=== PATIENT | female | born 1935 | race Caucasian/White ===

== ENCOUNTER 2019-12-02 12:49 | Outpatient (RCR) | payer MEDICARE, OTHER | END 2020-01-16 | disposition home or self-care (01) | PROVIDERS: ATTEND Orthopaedic Surgery | DX: M70.62 Trochanteric bursitis, left hip (principal); M70.61 Trochanteric bursitis, right hip ==

== ENCOUNTER 2020-08-06 12:52 | Emergency (ER) | payer MEDICARE, OTHER ==
[~2020-08-06] VITALS: Ht 165 cm; Wt 73.0 kg
--- NOTE | 2020-08-06 14:02 | NUR ---
RESTING IN BED. DOES NOT WANT ANYTHING FOR PAIN AT THIS MOMENT. PT HAS BEEN TALKING TO FAMILY/FRIENDS WITH HER CELL PHONE.
--- NOTE | 2020-08-06 14:23 | Diagnostic Imaging Report ---
INDICATION: Fall. FINDINGS: There is a mildly comminuted subcapital fracture of the right femur. There is no other fracture or dislocation. The pelvis is intact. The left hip is intact. IMPRESSION: Mildly comminuted subcapital fracture of the right femur. Dictated by: Dictated on workstation # [id number]
--- NOTE | 2020-08-06 14:24 | Diagnostic Imaging Report ---
INDICATION: Fall. FINDINGS: Heart size normal. Lungs are clear. No pleural effusion or pneumothorax. Mediastinum is unremarkable. IMPRESSION: No acute cardiopulmonary abnormality. Dictated by: Dictated on workstation # [id number]
--- NOTE | 2020-08-06 14:29 | ED Lower Extremity ---
General Chief Complaint: Trauma-Non Activation Stated Complaint: FALL Nursing Triage Note: ARRIVED VIA EMS WITH COMPLAINTS OF RIGHT HIP PAIN AFTER FALL. STATES SHE WAS ON A SLOPE WHEN SHE TRIPPED. DENIES DIZZINESS PRIOR TO FALL. Nursing Sepsis Screen: No Definite Risk History of Present Illness Date Seen by Provider: Aug 06, 2020 Time Seen by Provider: 14:27 Initial Comments This 84-year-old female who presents to the ER via [facility] for complaints of right hip pain. Sates she was walking into the back door of the [employer] when she slid and fell on the concrete, landing on her right hip. The pain is sharp, localized to the right hip, and rates 6 out of 10 at this time. Denies any numbness, tingling, or loss of sensation distal to the injury. Denies any head or neck trauma, or loss of consciousness. Allergies and Home Medications Allergies Coded Allergies: Penicillins (Verified Allergy, Severe, HIVES, 08/06/20) Sulfa (Sulfonamide Antibiotics) (Verified Allergy, Severe, HIVES, 08/06/20) iodine (Verified Allergy, Severe, HIVES, ITCHING, 08/06/20) Patient Home Medication List Home Medication List Reviewed: Yes Review of Systems Constitutional: no symptoms reported EENTM: no symptoms reported Respiratory: no symptoms reported Cardiovascular: no symptoms reported Gastrointestinal: no symptoms reported Genitourinary: no symptoms reported Musculoskeletal: see HPI Skin: no symptoms reported Psychiatric/Neurological: No Symptoms Reported Past Gfqdozh-Jrwhlw-Rtfzar Hx Patient Social History Recent Foreign Travel: No Contact w/Someone Who Travel: No Recent Infectious Disease Expo: No Past Medical History Surgeries: Yes (VAGINAL, BILAT MASTECTOMY, PACEMAKER, HERNIA) Respiratory: No Cardiac: No Neurological: No Genitourinary: No Gastrointestinal: No Musculoskeletal: No Endocrine: No HEENT: No Cancer: No Psychosocial: No Blood Disorders: No Physical Exam Vital Signs Vital Signs - First Documented 08/06/20 12:52 Temp 35.7 Pulse 121 Resp 16 B/P (MAP) 189/107 (134) Pulse Ox 99 O2 Delivery Room Air Capillary Refill : Less Than 3 Seconds Height, Weight, BMI Height: '" Weight: lbs. oz. kg; 26.00 BMI Method: General Appearance: WD/WN, no apparent distress HEENT: PERRL/EOMI, normal ENT inspection, pharynx normal Neck: non-tender, full range of motion, supple, normal inspection Cardiovascular: regular rate, rhythm, no edema, no murmur Respiratory: chest non-tender, lungs clear, normal breath sounds, no respiratory distress, no accessory muscle use Gastrointestinal: normal bowel sounds, non tender, soft Hips: left hip bone tenderness, left hip limited range of motion, left hip pain Neurologic/Tendon: normal sensation, normal motor functions, normal tendon functions, responds to pain Neurologic/Psychiatric: no motor/sensory deficits, alert, normal mood/affect, oriented x 3, other (neurovascular intact distal to injury, cap refill less than 2 seconds, right dorsalis pedis pulse 2+ regular.) Skin: normal color, warm/dry Progress/Results/Core Measures Results/Orders Lab Results Laboratory Tests Test 08/06/20 14:41 08/06/20 15:15 Range/Units White Blood Count 10.9 4.3-11.0 10^3/uL Red Blood Count 4.23 3.80-5.11 10^6/uL Hemoglobin 12.7 11.5-16.0 g/dL Hematocrit 41 35-52 % Mean Corpuscular Volume 96 80-99 fL Mean Corpuscular Hemoglobin 30 25-34 pg Mean Corpuscular Hemoglobin Concent 31 L 32-36 g/dL Red Cell Distribution Width 14.9 H 10.0-14.5 % Platelet Count 184 130-400 10^3/uL Mean Platelet Volume 11.2 9.0-12.2 fL Immature Granulocyte % (Auto) 1 % Neutrophils (%) (Auto) 85 H 42-75 % Lymphocytes (%) (Auto) 8 L 12-44 % Monocytes (%) (Auto) 5 0-12 % Eosinophils (%) (Auto) 0 0-10 % Basophils (%) (Auto) 0 0-10 % Neutrophils # (Auto) 9.3 H 1.8-7.8 10^3/uL Lymphocytes # (Auto) 0.9 L 1.0-4.0 10^3/uL Monocytes # (Auto) 0.6 0.0-1.0 10^3/uL Eosinophils # (Auto) 0.0 0.0-0.3 10^3/uL Basophils # (Auto) 0.0 0.0-0.1 10^3/uL Immature Granulocyte # (Auto) 0.1 0.0-0.1 10^3/uL Sodium Level 141 135-145 MMOL/L Potassium Level 4.7 3.6-5.0 MMOL/L Chloride Level 103 98-107 MMOL/L Carbon Dioxide Level 25 21-32 MMOL/L Anion Gap 13 5-14 MMOL/L Blood Urea Nitrogen 28 H 7-18 MG/DL Creatinine 1.50 H 0.60-1.30 MG/DL Estimat Glomerular Filtration Rate 33 BUN/Creatinine Ratio 19 Glucose Level 111 H 70-105 MG/DL Calcium Level 9.4 8.5-10.1 MG/DL Corrected Calcium 9.0 8.5-10.1 MG/DL Total Bilirubin 0.5 0.1-1.0 MG/DL Aspartate Amino Transf (AST/SGOT) 35 H 5-34 U/L Alanine Aminotransferase (ALT/SGPT) 30 0-55 U/L Alkaline Phosphatase 95 40-136 U/L Total Protein 7.5 6.4-8.2 GM/DL Albumin 4.5 3.2-4.5 GM/DL Urine Color YELLOW Urine Clarity CLEAR Urine pH 7.5 5-9 Urine Specific [place] 1.015 L 1.016-1.022 Urine Protein TRACE H NEGATIVE Urine Glucose (UA) NEGATIVE NEGATIVE Urine Ketones NEGATIVE NEGATIVE Urine Nitrite POSITIVE H NEGATIVE Urine Bilirubin NEGATIVE NEGATIVE Urine Urobilinogen 0.2 < = 1.0 MG/DL Urine Leukocyte Esterase TRACE H NEGATIVE Urine RBC (Auto) 3+ H NEGATIVE Urine RBC 25-50 H /HPF Urine WBC 5-10 H /HPF Urine Crystals NONE /LPF Urine Bacteria LARGE H /HPF Urine Casts NONE /LPF Urine Mucus NEGATIVE /LPF Urine Culture Indicated YES My Orders Orders - ALLI SALDAÑA RECORDER HELPER [employer] Cbc With Automated Diff (08/06/20 14:29) Comprehensive Metabolic Panel (08/06/20 14:29) Ua Culture If Indicated (08/06/20 14:29) Fentanyl Injection (Sublimaze Injection (08/06/20 14:30) Ondansetron Injection (Zofran Injectio (08/06/20 14:30) Ekg Tracing (08/06/20 14:29) Urine Culture (08/06/20 15:15) Medications Given in ED Current Medications Medications Dose Ordered Sig/Alisha Route Start Time Stop Time Status Last Admin Dose Admin Fentanyl Citrate 25 mcg ONCE ONCE IVP 08/06/20 14:30 08/06/20 14:32 DC 08/06/20 14:46 25 MCG Ondansetron HCl 4 mg ONCE ONCE IVP 08/06/20 14:30 08/06/20 14:32 DC 08/06/20 14:46 4 MG Vital Signs/I&O 08/06/20 08/06/20 12:52 16:20 Temp 35.7 Pulse 121 121 Resp 16 16 B/P (MAP) 189/107 (134) 206/115 Pulse Ox 99 97 O2 Delivery Room Air Blood Pressure Mean: 134 Progress Progress Note : Progress Note Patient requested I attempted transfer to [facility] prior to agreeing to [facility] transfer. States all of her physicians are at [facility] and she would prefer to have her surgery performed there. Called [facility] who stated they were on complete hospital diversion. Diagnostic Imaging Diagonstic Imaging: Xray Plain Films/CT/US/NM/MRI: hip Comments NAME: GAURI CARROLL MED REC#: [id number] PT STATUS: REG ER : 1935 PHYSICIAN: SEBASTIAN VELEZ MD ADMIT DATE: 08/06/20/ER Signed Date of Exam:08/06/20 PELVIS WITH RIGHT HIP 2-3VIEWS INDICATION: Fall. FINDINGS: There is a mildly comminuted subcapital fracture of the right femur. There is no other fracture or dislocation. The pelvis is intact. The left hip is intact. IMPRESSION: Mildly comminuted subcapital fracture of the right femur. Dictated by: Dictated on workstation # [id number] Dict: 08/06/20 1416 Trans: 08/06/20 1459 [id number] Interpreted by: MICHAEL HIRSCH MD Electronically signed by: MICHAEL HIRSCH MD 08/06/20 1459 Diagonstic Imaging: Xray Diagonstic Imaging: Xray Plain Films/CT/US/NM/MRI: chest Comments NAME: GAURI CARROLL MED REC#: [id number] PT STATUS: REG ER : 1935 PHYSICIAN: SEBASTIAN VELEZ MD ADMIT DATE: 08/06/20/ER Signed Date of Exam:08/06/20 CHEST 1 VIEW, AP/PA ONLY INDICATION: Fall. FINDINGS: Heart size normal. Lungs are clear. No pleural effusion or pneumothorax. Mediastinum is unremarkable. IMPRESSION: No acute cardiopulmonary abnormality. Dictated by: Dictated on workstation # [id number] Dict: 08/06/20 1413 Trans: 08/06/20 1459 [id number] [id number] Interpreted by: MICHAEL HIRSCH MD Electronically signed by: MICHAEL HIRSCH MD 08/06/20 1459 Consults : Consulting Physician: CHASIDY DARBY MD Consults Notes Notified Dr. Darby of patient transfer to [facility] for repair of hip fracture with Dr. Odell. Departure Communication (Admissions) Time/Spoke to Consulting Phy: 14:[address] Mohamud (ortho surgeon), states due to patient's ar thritic hip joint she is likely to need a total hip replacement which neither him nor Dr. Cavazos performs at this facility. Recommended transferring to facility that can perform total hip replacement. Impression Primary Impression: Subcapital fracture of right femur Additional Impression: Fall on same level as cause of accidental injury Disposition: 02 XFER SHT-TRM HOSP Condition: Stable Transfer Transfer Reason: Exceeds level of care Time Spoke to Accepting Phy: 14:50 Transfer Progress Notes Discussed case with Dr. Odell, he is agreeable with patient transfer. Transfer Time: 14:50 Transfer Facility: [facility] Method of Transfer: EMS Departure-Patient Inst. Referrals: MARINE LO MD (PCP) Primary Care Physician ALLI SALDAÑA RECORDER HELPER [employer]PECTING Aug 06, 2020 14:29
[2020-08-06] MEDS ORDERED: fentaNYL INJECTION 100 MCG/2 ML AMP IVP ONE (14:30)
[2020-08-06] MEDS ORDERED: ONDANSETRON 4 MG/2 ML (SDV) Z0FRAN IVP ONE (14:30)
[2020-08-06 14:54] LABS: BASOPHILS % (AUTO) 0 % (0-10); EOSINOPHILS % (AUTO) 0 % (0-10); HEMATOCRIT 41 % (35-52); HEMOGLOBIN 12.7 g/dL (11.5-16.0); LYMPHOCYTES # (AUTO) 0.9 10^3/uL (1.0-4.0); LYMPHOCYTES % (AUTO) 8 % (12-44); MEAN CORPUSCULAR HEMOGLOBIN 30 pg (25-34); MEAN CORPUSCULAR HGB CONC 31 g/dL (32-36); MEAN CORPUSCULAR VOLUME 96 fL (80-99); MEAN PLATELET VOLUME 11.2 fL (9.0-12.2); MONOCYTES # (AUTO) 0.6 10^3/uL (0.0-1.0); MONOCYTES % (AUTO) 5 % (0-12); NEUTROPHILS # (AUTO) 9.3 10^3/uL (1.8-7.8); NEUTROPHILS % (AUTO) 85 % (42-75); PLATELET COUNT 184 10^3/uL (130-400); WHITE BLOOD COUNT 10.9 10^3/uL (4.3-11.0)
[2020-08-06 15:04] LABS: ALBUMIN 4.5 GM/DL (3.2-4.5)
[2020-08-06 15:05] LABS: POTASSIUM 4.7 MMOL/L (3.6-5.0)
[2020-08-06 15:06] LABS: CALCIUM 9.4 MG/DL (8.5-10.1)
[2020-08-06 15:07] LABS: TOTAL PROTEIN 7.5 GM/DL (6.4-8.2)
[2020-08-06 15:09] LABS: BILIRUBIN,TOTAL 0.5 MG/DL (0.1-1.0)
[2020-08-06 15:10] LABS: CREATININE SERUM 1.5 MG/DL (0.60-1.30)
[2020-08-06 15:35] LABS: BILIRUBIN,URINE NEGATIVE (NEGATIVE); CLARITY,URINE CLEAR; COLOR,URINE YELLOW; GLUCOSE, URINE (UA) NEGATIVE (NEGATIVE); KETONES,URINE NEGATIVE (NEGATIVE); LEUKOCYTE ESTERASE ,URINE TRACE (NEGATIVE); NITRITE,URINE POSITIVE (NEGATIVE); PH,URINE 7.5 (5-9); PROTEIN,URINE TRACE (NEGATIVE)
--- NOTE | 2020-08-06 15:37 | NUR ---
CARTER VALLEJO REPORTS CALLING PTS FAMILY.
[2020-08-06 15:50] LABS: BACTERIA,URINE LARGE /HPF; RBC,URINE 25-50 /HPF
[2020-08-06 16:20] VITALS: BP 206/115
== END 2020-08-06 16:20 | disposition short-term general hospital (02) ==
LOC: EDUNIT# 12:52 → ER 12:54
DX: S72.011A Unspecified intracapsular fracture of right femur, initial encounter for closed fracture (principal); Z88.0 Allergy status to penicillin; Z88.2 Allergy status to sulfonamides; Z91.041 Radiographic dye allergy status; W18.39XA Other fall on same level, initial encounter
CPT/HCPCS: 36415; 51702; 71045; 80053; 81000; 85025; 87077; 87088; 93005

== ENCOUNTER → 2020-08-11 | Outpatient (CLI) | payer MEDICARE, OTHER | LOC: LABNPT 13:58 | PROVIDERS: ATTEND Family Medicine | DX: Z20.828 Contact with and (suspected) exposure to other viral communicable diseases (principal) | CPT/HCPCS: 87635 ==

== ENCOUNTER → 2020-09-25 | Outpatient (CLI) | payer OTHER, MEDICARE | LOC: LABNPT 10:08 | PROVIDERS: ATTEND Orthopaedic Surgery Sports Medicine | DX: Z20.822 Contact with and (suspected) exposure to COVID-19 (principal) | CPT/HCPCS: 87635 ==

== ENCOUNTER 2021-04-05 11:14 | Outpatient (RCR) | payer MEDICARE, OTHER | END 2021-04-09 | disposition home or self-care (01) | PROVIDERS: ATTEND Family Medicine | DX: Z96.641 Presence of right artificial hip joint (principal); I10 Essential (primary) hypertension ==

== ENCOUNTER 2021-05-30 11:19 | Outpatient (RCR) | payer MEDICARE, OTHER | END 2021-06-18 08:48 | disposition home or self-care (01) | PROVIDERS: ATTEND Family Medicine | DX: M24.451 Recurrent dislocation, right hip (principal); I10 Essential (primary) hypertension; Z96.641 Presence of right artificial hip joint ==

== ENCOUNTER → 2021-06-01 | Outpatient (CLI) | payer MEDICARE, OTHER ==
--- NOTE | 2021-06-01 15:44 | Diagnostic Imaging Report ---
INDICATION: Fall, left wrist pain. EXAMINATION: Left wrist at 3:28 p.m. Three views were obtained. COMPARISON: There is no prior study available for comparison. FINDINGS: There is a minimal impaction fracture of the distal radial metaphysis. The AP view does show slight offset of the medial cortex of the distal radius. No other acute fracture is identified. However, there does appear to be a long-standing avulsion fracture of the tip of the ulnar styloid. 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 The osseous structures are also seen to be demineralized. IMPRESSION: 1. There is a nondisplaced minimal impaction fracture of the distal radial metaphysis. There is no acute bony abnormality noted otherwise. 2. These results were called to Candida Guadalupe APRN. Dictated by: Dictated on workstation # [id number]
--- NOTE | 2021-06-01 16:32 | Diagnostic Imaging Report ---
PROCEDURE: CT head without contrast. TECHNIQUE: Multiple contiguous axial images were obtained through the brain without the use of intravenous contrast. Auto Exposure Controls were utilized during the CT exam to meet ALARA standards for radiation dose reduction. INDICATION: Fell, left frontal laceration. COMPARISON: There is no prior study available for comparison. FINDINGS: There is considerable edema/inflammation along the anterior aspect of the left frontal bone. This area measures approximately 1.1 x 5.8 cm. There are also a few droplets of gas in this region. There is a small subcentimeter oval area of increased density which may represent a hematoma. However, there is no clear evidence for a fracture in this area. There is no acute intracranial abnormality identified either. There is no mass, shift of the midline or hemorrhage to suggest an acute abnormality. The ventricles are prominent. The size of the ventricles is most likely due to the underlying cortical atrophy and the periventricular encephalomalacia. The degree of atrophy is consistent with the patient's age. There has been scleral banding procedure of both orbits. The sinuses are generally clear. IMPRESSION: 1. There is edema/inflammation of the soft tissues along the anterior aspect of the left frontal bone. There may also be a small hematoma in this area. There is no sign of a skull fracture however nor is there any evidence for an acute intracranial abnormality t. 2. If clinical concern regarding an underlying abnormality persists, then MRI would be recommended for further study. 3. These results were called to Candida Guadalupe APRN at the time of this exam. Dictated by: Dictated on workstation # [id number]
== END ==
LOC: RAD 14:43
PROVIDERS: ATTEND Nurse Practitioner Family
DX: S01.81XA Laceration without foreign body of other part of head, initial encounter (principal); M25.532 Pain in left wrist; W19.XXXA Unspecified fall, initial encounter
CPT/HCPCS: 70450; 73110

== ENCOUNTER → 2022-02-11 | Outpatient (RCR) | payer MEDICARE, OTHER | END | disposition home or self-care (01) | PROVIDERS: ATTEND Nurse Practitioner Family | DX: R53.1 Weakness (principal); R26.89 Other abnormalities of gait and mobility; I10 Essential (primary) hypertension ==

== ENCOUNTER → 2022-03-13 | Outpatient (RCR) | payer MEDICARE, OTHER | END | disposition home or self-care (01) | PROVIDERS: ATTEND Nurse Practitioner Family | DX: R53.1 Weakness (principal); R26.89 Other abnormalities of gait and mobility; I10 Essential (primary) hypertension ==

== ENCOUNTER 2022-04-11 10:42 | Outpatient (RCR) | payer MEDICARE, OTHER | END 2022-04-13 | disposition home or self-care (01) | PROVIDERS: ATTEND Nurse Practitioner Family | DX: R53.1 Weakness (principal); I10 Essential (primary) hypertension ==

== ENCOUNTER 2022-05-12 11:10 | Outpatient (RCR) | payer MEDICARE, OTHER | END 2022-05-14 | disposition home or self-care (01) | PROVIDERS: ATTEND Nurse Practitioner Family | DX: R53.1 Weakness (principal); I10 Essential (primary) hypertension ==

== ENCOUNTER 2022-05-15 10:09 | Outpatient (RCR) | payer MEDICARE, OTHER | END 2022-05-15 11:10 | disposition home or self-care (01) | PROVIDERS: ATTEND Nurse Practitioner Family | DX: R53.1 Weakness (principal); I10 Essential (primary) hypertension ==

== ENCOUNTER 2023-07-31 11:48 | Inpatient (IN) | payer MEDICARE, OTHER ==
[~2023-07-31] VITALS: Ht 157.5 cm; Wt 65.8 kg
[2023-07-31] VITALS (8 sets, daily range): BP systolic 116–184; BP diastolic 63–83
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
[2023-07-31] MEDS ORDERED: fentaNYL INJECTION 100 MCG/2 ML VIAL IVP ONE ×2 (13:00→14:45)
[2023-07-31 13:04] LABS: BASOPHILS # (AUTO) 0.1 10^3/uL (0.0-0.1); BASOPHILS % (AUTO) 1 % (0-10); EOSINOPHILS # (AUTO) 0.1 10^3/uL (0.0-0.3); EOSINOPHILS % (AUTO) 1 % (0-10); HEMATOCRIT 39 % (35-52); HEMOGLOBIN 12.8 g/dL (11.5-16.0); LYMPHOCYTES # (AUTO) 1.4 10^3/uL (1.0-4.0); LYMPHOCYTES % (AUTO) 13 % (12-44); MEAN CORPUSCULAR HEMOGLOBIN 30 pg (25-34); MEAN CORPUSCULAR HGB CONC 33 g/dL (32-36); MEAN CORPUSCULAR VOLUME 92 fL (80-99); MEAN PLATELET VOLUME 11.5 fL (9.0-12.2); MONOCYTES % (AUTO) 9 % (0-12); NEUTROPHILS # (AUTO) 8.5 10^3/uL (1.8-7.8); NEUTROPHILS % (AUTO) 77 % (42-75); PLATELET COUNT 219 10^3/uL (130-400); WHITE BLOOD COUNT 11.1 10^3/uL (4.3-11.0)
[2023-07-31 13:12] LABS: ALBUMIN 4.1 GM/DL (3.2-4.5); POTASSIUM 4.4 MMOL/L (3.6-5.0)
[2023-07-31 13:13] LABS: CALCIUM 9.3 MG/DL (8.5-10.1)
[2023-07-31 13:14] LABS: TOTAL PROTEIN 7.6 GM/DL (6.4-8.2)
[2023-07-31 13:16] LABS: BILIRUBIN,TOTAL 0.7 MG/DL (0.1-1.0)
[2023-07-31 13:18] LABS: CREATININE SERUM 1.39 MG/DL (0.60-1.30)
[2023-07-31 13:21] LABS: MAGNESIUM 2.3 MG/DL (1.6-2.4)
[2023-07-31 13:42] LABS: FREE T4 (FREE THYROXINE) 1.09 NG/DL (0.70-1.48)
--- NOTE | 2023-07-31 13:58 | Diagnostic Imaging Report ---
INDICATION: Leg pain. FINDINGS: Two-view right femur performed. 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 The hardware is intact. No prosthetic dislocation. Residual bony structures showed no appreciable fracture proximally or at the mid shaft. At the level of the knee, there is lateral subluxation of the tibia and fibula with respect to the distal femur. There is equivocal lucency in the articular surface of the medial femoral condyle, correlate with any knee pain. Dedicated three-view knee series is suggested. IMPRESSION: Intact proximal postsurgical changes. Lateral subluxation of the tibia with indeterminate irregularity at the medial femoral condyle. Dedicated knee radiographs recommended. No other potential injury found. Dictated by: Dictated on workstation # [id number]
--- NOTE | 2023-07-31 14:32 | Diagnostic Imaging Report ---
INDICATION: Fall with pelvic pain. TIME OF EXAM: 01:30 p.m. FINDINGS: Postop changes of right hip arthroplasty are noted. Femoroacetabular alignment is normal bilaterally. No fractures are identified. Superior and inferior pubic rami are intact. SI joints and symphysis are non widened. Left hip does show some degenerative changes with superior joint space narrowing. Multiple surgical clips in the lower right abdomen and pelvis are noted. IMPRESSION: Chronic and postop changes. No acute bony abnormality is detected. Dictated by: Dictated on workstation # [id number]
--- NOTE | 2023-07-31 14:42 | Diagnostic Imaging Report ---
INDICATION: Fall and right leg pain. Time of Exam: 1:34 PM AP and lateral views right tibia and fibula were obtained. Tibia and fibula appear to be intact. There is abnormal lucency and irregularity involving the medial femoral condyle and fracture at this location cannot be excluded. Dedicated knee radiographs would be recommended. No dislocation is identified. Alignment at the ankle is normal. IMPRESSION: Cortical irregularity of the medial femoral condyle. Dedicated knee radiograph would be recommended for further evaluation. No other abnormalities are seen. Dictated by: Dictated on workstation # [id number]
--- NOTE | 2023-07-31 14:51 | Diagnostic Imaging Report ---
INDICATION: Fall and right knee pain. TIME OF EXAM: 2:14 p.m. FINDINGS: Three views of the right knee demonstrate a lucency through the medial femoral condyle at the articular surface with cortical interruption. There is also some cortical interruption more proximally on the medial side. Features are consistent with an acute fracture. There appears to be suprapatellar fullness consistent with joint effusion, likely hemarthrosis. No significant displacement is identified. Proximal tibia and fibula are intact. IMPRESSION: Distal femur fracture, nondisplaced, as described. Dictated by: Dictated on workstation # [id number]
--- NOTE | 2023-07-31 15:54 | CONSULTATION REPORT ---
DATE OF SERVICE: 07/31/2023 REASON: Right distal femur fracture. HISTORY: The patient was admitted for placement. She is an 87-year-old female who fell yesterday. She was found to have a nondisplaced medial condyle fracture of the distal femur. I have reviewed the films. I recommended a knee immobilizer and nonweightbearing with followup in 2 weeks with x-rays on arrival. Thank you for consultation. 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
[2023-07-31] MEDS ORDERED: morphine INJ 4 MG/ML 1 ML (VIAL/SYRINGE) IVP ONE (16:15)
[2023-07-31] MEDS ORDERED: LABETALOL 5 mg/ml 4 ML SINGLE DOSE SYRINGE IV ONE (16:15)
[2023-07-31] MEDS ORDERED: CATHETER FLUSH 10 ML SYR IVP PRN (18:45)
[2023-07-31] MEDS ORDERED: ONDANSETRON INJECTION 4 MG/2 ML (SDV) IV PRN (18:45)
[2023-07-31] MEDS: CATHETER FLUSH 10 ML SYR IVP SCH (19:24)
[2023-08-01 03:39] VITALS: BP 131/75
[2023-08-01] MEDS: CATHETER FLUSH 10 ML SYR IVP SCH ×3 (05:52→19:40)
[2023-08-01] MEDS: HYDROcodone/ACETAMINOPHEN 5 MG/325 MG TABLET PO PRN ×2 (06:06→20:32)
--- NOTE | 2023-08-01 07:50 | Progress Note ---
Standard Progress Note Progress Notes/Assess & Plan Date Seen by a Provider: Aug 01, 2023 Time Seen by a Provider: 07:43 Progress/Assessment & Plan I spoke with the patient this AM re plan for femur fracture she agrees will follow up as an outpatient in 2 weeks LADARIUS WHITE MD Aug 01, 2023 07:50
[2023-08-01 07:54] VITALS: BP 150/67
--- NOTE | 2023-08-01 09:41 | Physical Therapy Evaluation ---
PT Evaluation-General Medical Diagnosis Admission Date Jul 31, 2023 at 17:41 Medical Diagnosis: Right distal femur fracture Onset Date: Jul 31, 2023 Therapy Diagnosis Therapy Diagnosis: Gait deficit Precautions Precautions/Isolations: Fall Prevention, Standard Precautions Weight Bear Status Right Lower Extremity: Right Non Weight Bearing Left Lower Extremity: Left Full Weight Bearing Referral Physician: Dr. Garcia Reason for Referral: Evaluation/Treatment Medical History Reviewed History: Yes Social History Home: Apartment Current Living Status: Alone Entry Into Home: Level Entry Prior Prior Level of Function SCALE: Activities may be completed with or without assistive devices. 3-Gamgfcxgzl-vdwtykc completes the activity by him/herself with no assistance from a helper. 5-Set-up or Clean-up Assistance-helper sets up or cleans up; patient completes activity. Seaside assists only prior to or following the activity. 4-Supervision or Touching Assistance-helper provides verbal cues and/or touching/steadying and/or contact guard assistance as patient completes activity. Assistance may be provided throughout the activity or intermittently. 3-Partial/Moderate Assistance-helper does LESS THAN HALF the effort. Seaside lifts, holds or supports trunk or limbs, but provides less than half the effort. 2-Substantial/Maximal Assistance-helper does MORE THAN HALF the effort. Seaside lifts or holds trunk or limbs and provides more than half the effort. 9-Gmbduxrxm-ielwxs does ALL the effort. Patient does none of the effort to complete the activity. Or, the assistance of 2 or more helpers is required for the patient to complete the activity. If activity was not attempted, code reason: 7-Patient Refused. 9-Not Applicable-not attempted and the patient did not perform the activity before the current illness, exacerbation or injury. 10-Not Attempted due to Environmental Limitations-(lack of equipment, weather restraints, etc.). 88-Not Attempted due to Medical Conditions or Safety Concerns. Bed Mobility: 6 Transfers (B,C,W/C): 6 Gait: 6 Indoor Mobility (Ambulation): Independent Stairs: Not Applicalbe Prior Devices Use: Walker PT Evaluation-Current Subjective Patient lying supine in bed upon PT arrival, agreeable to treatment. Patient ratesa pain at 5/10 in right LE. Patient has donned a right knee immobilizer. Objective Patient Orientation: Person, Place, Time, Situation Attachments: Baldwin Catheter, IV ROM/Strength ROM Lower Extremities RLE N/A due to injury. Left LE WFLs all planes. Sensory Vision: Functional Hearing: Functional Sensation Right Lower Extremit: Intact Sensation Left Lower Extremity: Intact Transfers Roll Left to Right (QC): 2 Sit to Lying (QC): 2 Lying to Sitting/Side of Bed(Q: 2 Sit to Stand (QC): 2 Chair/Pbh-xt-Vlmhs Xfer(QC): 2 Gait Does the Patient Walk?: No and Walking Goal IS indicated Mode of Locomotion: Both Anticipated Mode of Locomotion: Both Balance Sitting Static: Fair Sitting Dynamic: Fair Standing Static: Poor Standing Dynamic: Poor Assessment/Needs Patient requires max a for all observed bed mobility and transfers. Patient attempts sit to stand with FWW with max A and is able to stand ~30 seconds. However upon attempting to transfer to the chair with NWB right LE, patient unable to hold herself up with her UEs. Patient performs SPT to the chair with max A. Patient in chair post treatment with all needs met, nursing notified, call light in hand and chair alarm activated. Rehab Potential: Fair PT Mcfp Goals Mcfp Goals PT Mcfp Goals Time Frame: Aug 13, 2023 Roll Left & Right (QC): 4 Sit to Lying (QC): 4 Lying-Sitting on Side/Bed(QC): 4 Sit to Stand (QC): 4 Chair/Nas-fl-Lbatl Xfer(QC): 4 Does the Patient Walk: Yes Walk 10 feet (QC): 3 Walk 50ft with 2 Turns (QC): 3 Walk 150 ft (QC): 3 PT Plan Problem List Problem List: Activity Tolerance, Functional Strength, Safety, Balance, Gait, Transfer, Bed Mobility, ROM Treatment/Plan Treatment Plan: Continue Plan of Care Treatment Plan: Bed Mobility, Education, Functional Activity Kamaljit, Functional Strength, Group Therapy, Gait, Safety, Therapeutic Exercise, Transfers Treatment Duration: Aug 13, 2023 Frequency: 11 times per week Estimated Hrs Per Day: .25 hour per day Patient and/or Family Agrees t: Yes Safety Risks/Education Patient Education: Gait Training, Transfer Techniques Teaching Recipient: Patient Teaching Methods: Demonstration, Discussion Response to Teaching: Reinforcement Needed Time Time In: 905 Time Out: 935 DATE: Aug 01, 2023 Total Billed Treatment Time: 30 Total Billed Treatment Visit, SARA AGUILERA JOHN A PT Aug 01, 2023 09:41
[2023-08-01 11:40] VITALS: BP 108/54
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
[2023-08-01 15:18] VITALS: BP 154/67
[2023-08-01 19:34] VITALS: BP 128/73
[2023-08-01 23:15] VITALS: BP 112/67
[2023-08-01] MEDS: morphine INJ 4 MG/ML 1 ML (VIAL/SYRINGE) IV PRN (23:51)
[2023-08-02] MEDS: HYDROcodone/ACETAMINOPHEN 5 MG/325 MG TABLET PO PRN ×4 (01:24→21:54)
[2023-08-02] MEDS: CATHETER FLUSH 10 ML SYR IVP SCH ×3 (06:30→19:21)
[2023-08-02 07:51] VITALS: BP 102/64
[2023-08-02 09:03] VITALS: BP 121/63
[2023-08-02 11:41] VITALS: BP 111/72
[2023-08-02] MEDS ORDERED: VITAMIN D3 10 MCG (400 UNITS) TABLET PO ONE (11:45)
[2023-08-02] MEDS ORDERED: APIXABAN 5 MG TABLET PO ONE (11:45)
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
[2023-08-02] MEDS: morphine INJ 4 MG/ML 1 ML (VIAL/SYRINGE) IV PRN (13:25)
[2023-08-02 15:35] VITALS: BP 96/52
[2023-08-02] MEDS: APIXABAN 5 MG TABLET PO SCH (19:21)
[2023-08-02 19:43] VITALS: BP 111/54
[2023-08-02 23:01] VITALS: BP 128/73
[2023-08-03] MEDS: HYDROcodone/ACETAMINOPHEN 5 MG/325 MG TABLET PO PRN ×4 (01:17→23:28)
[2023-08-03] MEDS: VITAMIN D3 10 MCG (400 UNITS) TABLET PO SCH (05:48)
[2023-08-03] MEDS: CATHETER FLUSH 10 ML SYR IVP SCH ×3 (05:48→19:44)
[2023-08-03] MEDS: APIXABAN 5 MG TABLET PO SCH ×2 (08:06→19:44)
[2023-08-03 08:10] VITALS: BP 103/64
[2023-08-03] MEDS ORDERED: BENA40TA84 PO (09:30)
[2023-08-03] MEDS ORDERED: MTP25TSR PO (09:30)
[2023-08-03] MEDS ORDERED: APIX2.5T PO (09:31)
[2023-08-03] MEDS ORDERED: MAGN400T39 PO (09:32)
[2023-08-03] MEDS ORDERED: CALC-823 PO (09:32)
[2023-08-03] MEDS ORDERED: MULT-1054 PO (09:46)
[2023-08-03] MEDS ORDERED: BIOT5TAB PO (09:46)
[2023-08-03] MEDS ORDERED: BIOT1TAB22 PO (09:46)
--- NOTE | 2023-08-03 10:40 | Physical Therapy Daily Note ---
PT Daily Note-Current Subjective Patient agrees to therapy. Pain Section J - Health Conditions 1. Rarely or not at all 2. Occasionally 3. Frequently 4. Almost constantly 8. Unable to answer Pain Effect on Sleep: 2 Pain Interference with Therapy: 2 Pain Interference w/Day-to-Day: 2 Transfers SCALE: Activities may be completed with or without assistive devices. 2-Ooagkifapr-sogeypi completes the activity by him/herself with no assistance from a helper. 5-Set-up or Clean-up Assistance-helper sets up or cleans up; patient completes activity. [place] assists only prior to or following the activity. 4-Supervision or Touching Assistance-helper provides verbal cues and/or touching/steadying and/or contact guard assistance as patient completes activity. Assistance may be provided throughout the activity or intermittently. 3-Partial/Moderate Assistance-helper does LESS THAN HALF the effort. [place] lifts, holds or supports trunk or limbs, but provides less than half the effort. 2-Substantial/Maximal Assistance-helper does MORE THAN HALF the effort. [place] lifts or holds trunk or limbs and provides more than half the effort. 7-Yaveesrlh-btjezp does ALL the effort. Patient does none of the effort to complete the activity. Or, the assistance of 2 or more helpers is required for the patient to complete the activity. If activity was not attempted, code reason: 7-Patient Refused. 9-Not Applicable-not attempted and the patient did not perform the activity before the current illness, exacerbation or injury. 10-Not Attempted due to Environmental Limitations-(lack of equipment, weather restraints, etc.). 88-Not Attempted due to Medical Conditions or Safety Concerns. Lying to Sitting/Side of Bed(Q: 3 Sit to Stand (QC): 3 Chair/Pcb-tv-Uoobr Xfer(QC): 3 (able to scoot left foot with use of FWW to transfer) Weight Bearing Right Lower Extremity: Right Non Weight Bearing Left Lower Extremity: Left Full Weight Bearing Gait Training Does the Patient Walk?: No and Walking Goal IS indicated Assessment Patient up in recliner with demonstrating the ability to NWB right LE with knee immobilizer in place. Patient currently unable to perform "hopping" to ambulate. Continue to increase activity as tolerated by patient. PT Care Coordination Manager Goals Care Coordination Manager Goals PT Fpc Goals Time Frame: Aug 13, 2023 Roll Left & Right (QC): 4 Sit to Lying (QC): 4 Lying-Sitting on Side/Bed(QC): 4 Sit to Stand (QC): 4 Chair/Roj-fp-Jhhdd Xfer(QC): 4 Does the Patient Walk: Yes Walk 10 feet (QC): 3 Walk 50ft with 2 Turns (QC): 3 Walk 150 ft (QC): 3 PT Plan Treatment/Plan Treatment Plan: Continue Plan of Care Treatment Plan: Bed Mobility, Education, Functional Activity Kamaljit, Functional Strength, Group Therapy, Gait, Safety, Therapeutic Exercise, Transfers Treatment Duration: Aug 13, 2023 Frequency: 11 times per week Estimated Hrs Per Day: .25 hour per day Patient and/or Family Agrees t: Yes Time Time In: 945 Time Out: 1000 DATE: Aug 03, 2023 Total Billed Treatment Time: 15 Total Billed Treatment 1 visit FA 15 min DEBRA ALVAREZ PT Aug 03, 2023 10:40
--- NOTE | 2023-08-03 10:47 | Occupational Therapy Eval ---
OT Evaluation-General/PLF Medical Diagnosis Admission Date Jul 31, 2023 at 17:41 Medical Diagnosis: Right distal femur fracture Onset Date: Jul 31, 2023 Therapy Diagnosis Therapy Diagnosis: weakness Precautions Precautions/Isolations: Fall Prevention, Standard Precautions Weight Bear Status Weight Bearing Restriction: Non Weight Bearing Location Restriction: R LE (immobilizer) Referral Physician: Dr. Garcia Referral Reason: Evaluation/Treatment Medical History Additional Medical History right distal femur fracture involving the joint space for which conservative medical management has been recommended by orthopedics as per Dr. Cavazos's note Current History Fell at home at night, in am unable to perform mobility, Social History Home: Apartment Current Living Status: Alone Entry Into Home: Level Entry ADL-Prior Level of Function SCALE: Activities may be completed with or without assistive devices. 8-Lojybxoidn-orqurgu completes the activity by him/herself with no assistance from a helper. 5-Set-up or Clean-up Assistance-helper sets up or cleans up; patient completes activity. [place] assists only prior to or following the activity. 4-Supervision or Touching Assistance-helper provides verbal cues and/or touc laurie/steadying and/or contact guard assistance as patient completes activity. Assistance may be provided throughout the activity or intermittently. 3-Partial/Moderate Assistance-helper does LESS THAN HALF the effort. [place] lifts, holds or supports trunk or limbs, but provides less than half the effort. 2-Substantial/Maximal Assistance-helper does MORE THAN HALF the effort. [place] lifts or holds trunk or limbs and provides more than half the effort. 8-Mmxipiwsd-vfvsue does ALL the effort. Patient does none of the effort to complete the activity. Or, the assistance of 2 or more helpers is required for the patient to complete the activity. If activity was not attempted, code reason: 7-Patient Refused. 9-Not Applicable-not attempted and the patient did not perform the activity before the current illness, exacerbation or injury. 10-Not Attempted due to Environmental Limitations-(lack of equipment, weather restraints, etc.). 88-Not Attempted due to Medical Conditions or Safety Concerns. Self Care: Independent Functional Cognition: Independent DME/Equipment: Shower [address] Self: No OT Current Status Subjective Agreeable to OT, 2 family members present Pain Numeric Pain Scale: 5-Moderate Pain Mental Status/Objective Patient Orientation: Person, Place, Time, Situation Attachments: Knee Immobilizer, Other-See Comments (PUR WICK) Current Upper Extremity ROM BUE ROM WFLS Upper Extremity Coordination WFLS Upper Extremity Sensation intact Upper Extremity Strength -4/5 grossly ADL-Treatment Eating (QC): 6 Oral Hygiene (QC): 5 Shower/Bathe Self (QC): 7 Upper Body Dressing (QC): 3 Lower Body Dressing (QC): 3 On/Off Footwear (QC): 1 Toileting Hygiene (QC): 3 Education OT Patient Education: Correct positioning, Modified ADL techniques, Progress toward Goal/Update tx plan, Purpose of tx/functional activities, Reviewed precautions, Rehab process, Safety issues, Transfer techniques, Use of adapted equipment Teaching Recipient: Patient Teaching Methods: Demonstration Response to Teaching: Reinforcement Needed OT Vacuum Cleaner Repairer Goals Vacuum Cleaner Repairer Goals Eating (QC): 6 Oral Hygiene (QC): 6 Toileting Hygiene (QC): 6 Shower/Bathe Self (QC): 6 Upper Body Dressing (QC): 6 Lower Body Dressing (QC): 6 On/Off Footwear (QC): 6 1=Demonstrate adherence to instructed precautions during ADL tasks. 2=Patient will verbalize/demonstrate understanding of assistive devices/modifications for ADL. 3=Patient will improve strength/tolerance for activity to enable patient to perform ADL's. OT Education/Plan Problem List/Assessment Assessment: Decreased Activ Tolerance, Decreased UE Strength, Dependent Transfers, Impaired Bed Mobility, Impaired Funct Balance, Impaired Self-Care Skills Discharge Recommendations Plan/Recommendations: Continue POC Treatment Plan/Plan of Care Treatment,Training & Education: Yes Patient would benefit from OT for education, treatment and training to promote independence in ADL's, mobility, safety and/or upper extremity function for ADL's. Plan of Care: ADL Retraining, Cognitive Retraining, Concurrent Therapy, Functional Mobility, Group Exercise/Act as Ind, UE Funct Exercise/Act Treatment Duration: Aug 13, 2023 Frequency: 3 times per week (3-5 times per week) Rehab Potential: Fair Time Start Time: 09:42 Stop Time: 10:00 DATE: Aug 03, 2023 Total Time Billed (hr/min): 18 Billed Treatment Time EVM 18 min DAVIAN SUAREZ OT Aug 03, 2023 10:47
[2023-08-03 11:58] VITALS: BP 119/70
[2023-08-03 15:42] VITALS: BP 113/59
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
[2023-08-03 19:48] VITALS: BP 130/72
[2023-08-03 23:09] VITALS: BP 124/54
[2023-08-04 03:07] VITALS: BP 150/77
[2023-08-04] MEDS: VITAMIN D3 10 MCG (400 UNITS) TABLET PO SCH (05:13)
[2023-08-04] MEDS: CATHETER FLUSH 10 ML SYR IVP SCH (05:13)
[2023-08-04 07:37] VITALS: BP 125/66
[2023-08-04] MEDS: APIXABAN 5 MG TABLET PO SCH (08:41)
[2023-08-04] MEDS ORDERED: MTP25TSR PO (09:44)
[2023-08-04] MEDS ORDERED: MAGN400T39 PO (09:44)
[2023-08-04] MEDS ORDERED: BENA40TA84 PO (09:44)
[2023-08-04] MEDS ORDERED: NF-VITD400 PO (09:44)
[2023-08-04] MEDS ORDERED: BIOT5TAB PO (09:44)
[2023-08-04] MEDS ORDERED: CALC-823 PO (09:44)
[2023-08-04] MEDS ORDERED: APIX5TAB PO (09:44)
[2023-08-04] MEDS ORDERED: ACHD5005 PO (09:44)
--- NOTE | 2023-08-04 09:50 | Discharge Summary ---
Discharge Summary Hospital Course Hospital Course Date of Admission: Jul 31, 2023 at 17:41 Admission Diagnosis : Femur fracture Family Physician/Provider: Buzz Trevino MD Date of Discharge: 08/04/23 Discharge Diagnosis: Femur fracture Hospital Course: Maria De Jesus Ashraf is an 87 year old female who was admitted after a fall with a femur fracture. Orthopedic surgery was consulted and assisted with her care. Dr. Cavazos recommended non-operative management with knee immobilizer and non-weight bearing to the right lower extremity. She should follow up in his clinic in two weeks. She was started on Vitamin D due to likely underlying osteoporosis. She was given a small supply of Hydrocodone for pain. She should follow up with Dr. Trevino in about a week. She was discharged to [facility] in stable condition. Labs and Pending Lab Test: Home Meds Active Vitamin D3 (Vitamin D) 10 Mcg (400 Unit) Tablet 20 Mcg PO DAILY@0700 30 Days Eliquis (Apixaban) 5 Mg Tablet 5 Mg PO BID 30 Days Biotin 5 Mg Tablet 5 Mg PO DAILY 30 Days Magnesium (Magnesium Oxide) 400 Mg Magnesium Tablet 400 Mg PO DAILY 30 Days Calcium (Calcium Carbonate) 500 Mg Calcium (1250 Mg) Tablet 500 Mg PO DAILY 30 Days Metoprolol Succinate 25 Mg Tab.er.24h 25 Mg PO DAILY 30 Days Benazepril HCl 40 Mg Tab 40 Mg PO DAILY 30 Days Reported Eliquis (Apixaban) 2.5 Mg Tablet 2.5 Mg PO BID Instructions to Patient/Family Assessment/Instructions Take medications as prescribed. Wear the knee immobilizer and non-weight bearing to right lower extremity. Follow up with Dr. Cavazos in a couple weeks. Follow up with your PCP in about a week. Return with worsening pain, shortness of breath, or if you feel like you are getting worse. Follow Up Appt.: [facility] 2 weeks [facility] 1 week Skilled NF Admit to: [facility] Certification (SNF) I certify that SNF services are required to be given on an inpatient basis becau se of the above named patient's need for fci care on a continuing basis for the conditions(s) for which he/she was receiving inpatient hospital services prior to his/her transfer to the SNF. Assisted Facility Order: Nursing Services, Supervisor Television Chassis Repair-Evaluate & Treat, Physical Therapy-Evaluate & Treat Oxygen Delivery Method: Room Air Discharge Diet: No Restrictions Daily Activity as Tolerated: Yes (non-weight bearing right lower extremity) Resuscitation Status: Do Not Resuscitate Alex Gibbs Aug 04, 2023 09:45 Discharge Physical Exam General: Alert, No Acute Distress Lungs: Clear to Auscultation, Normal Air Movement Heart: Regular Rate, No Murmurs Abdomen: Normal Bowel Sounds, Soft Extremities: No Edema Skin: No Rashes Neuro: Normal Speech, Normal Tone Psych/Mental Status: Mental Status NL, Mood NL ALEX GIBBS MD Aug 04, 2023 09:50
--- NOTE | 2023-08-04 11:09 | Physical Therapy Daily Note ---
PT Daily Note-Current Subjective Patient agrees to therapy. Pain Section J - Health Conditions 1. Rarely or not at all 2. Occasionally 3. Frequently 4. Almost constantly 8. Unable to answer Pain Effect on Sleep: 2 Pain Interference with Therapy: 2 Pain Interference w/Day-to-Day: 2 Transfers SCALE: Activities may be completed with or without assistive devices. 9-Wdlibwokfq-oeagrpr completes the activity by him/herself with no assistance from a helper. 5-Set-up or Clean-up Assistance-helper sets up or cleans up; patient completes activity. [place] assists only prior to or following the activity. 4-Supervision or Touching Assistance-helper provides verbal cues and/or touching/steadying and/or contact guard assistance as patient completes activity. Assistance may be provided throughout the activity or intermittently. 3-Partial/Moderate Assistance-helper does LESS THAN HALF the effort. [place] lifts, holds or supports trunk or limbs, but provides less than half the effort. 2-Substantial/Maximal Assistance-helper does MORE THAN HALF the effort. [place] lifts or holds trunk or limbs and provides more than half the effort. 9-Giqhxpsfs-plccam does ALL the effort. Patient does none of the effort to complete the activity. Or, the assistance of 2 or more helpers is required for the patient to complete the activity. If activity was not attempted, code reason: 7-Patient Refused. 9-Not Applicable-not attempted and the patient did not perform the activity before the current illness, exacerbation or injury. 10-Not Attempted due to Environmental Limitations-(lack of equipment, weather restraints, etc.). 88-Not Attempted due to Medical Conditions or Safety Concerns. Lying to Sitting/Side of Bed(Q: 3 Sit to Stand (QC): 3 Chair/Ijj-sg-Wrnnc Xfer(QC): 2 Weight Bearing Right Lower Extremity: Right Non Weight Bearing Left Lower Extremity: Left Full Weight Bearing Assessment Patient had difficulty with sequencing to scoot on left foot to transfer to recliner. Required redirection to remain on and complete task. Patient up in recliner with chair alarm activated. Per SW, patient will transfer to CA on . PT Customer Counter Associate Goals Retirement Goals PT Retirement Goals Time Frame: Aug 13, 2023 Roll Left & Right (QC): 4 Sit to Lying (QC): 4 Lying-Sitting on Side/Bed(QC): 4 Sit to Stand (QC): 4 Chair/Bsm-tv-Jowkx Xfer(QC): 4 Does the Patient Walk: Yes Walk 10 feet (QC): 3 Walk 50ft with 2 Turns (QC): 3 Walk 150 ft (QC): 3 PT Plan Treatment/Plan Treatment Plan: Continue Plan of Care Treatment Plan: Bed Mobility, Education, Functional Activity Kamaljit, Functional Strength, Group Therapy, Gait, Safety, Therapeutic Exercise, Transfers Treatment Duration: Aug 13, 2023 Frequency: 11 times per week Estimated Hrs Per Day: .25 hour per day Patient and/or Family Agrees t: Yes Time Time In: 1000 Time Out: 1015 DATE: Aug 04, 2023 Total Billed Treatment Time: 15 Total Billed Treatment 1 visit FA 15 min DEBRA ALVAREZ PT Aug 04, 2023 11:09
--- NOTE | 2023-08-04 11:23 | Occupational Ther Daily Note ---
OT Current Status-Daily Note Subjective Reclined in bed, reports leaving for [facility] soon, agreeable to OT Pain Numeric Pain Scale: 5-Moderate Pain Location: Right (leg) Mental Status/Objective Patient Orientation: Person, Place, Time, Situation Attachments: IV, Other-See Comments (ANA LILIA BERUMEN) ADL-Treatment OT dons socks, patient performs face/grooming sitting unsupported EOB, VCs to place RLE on floor to balance support. SIT/STAND 3 transfer to recliner 2 as does not follow R/L direction for pivot of Left foot Therapy Code Descriptions/Definitions Functional [place] Measure: 0=Not Assessed/NA 4=Minimal Assistance 1=Total Assistance 5=Supervision or Setup 2=Maximal Assistance 6=Modified [place] 3=Moderate Assistance 7=Complete IndependenceSCALE: Activities may be completed with or without assistive devices. 4-Rxcsmeamty-gktxnxw completes the activity by him/herself with no assistance from a helper. 5-Set-up or Clean-up Assistance-helper sets up or cleans up; patient completes a ctivity. [place] assists only prior to or following the activity. 4-Supervision or Touching Assistance-helper provides verbal cues and/or touching/steadying and/or contact guard assistance as patient completes activity. Assistance may be provided throughout the activity or intermittently. 3-Partial/Moderate Assistance-helper does LESS THAN HALF the effort. [place] lifts, holds or supports trunk or limbs, but provides less than half the effort. 2-Substantial/Maximal Assistance-helper does MORE THAN HALF the effort. [place] lifts or holds trunk or limbs and provides more than half the effort. 4-Zeautptmz-xeqpei does ALL the effort. Patient does none of the effort to complete the activity. Or, the assistance of 2 or more helpers is required for the patient to complete the activity. If activity was not attempted, code reason: 7-Patient Refused. 9-Not Applicable-not attempted and the patient did not perform the activity before the current illness, exacerbation or injury. 10-Not Attempted due to Environmental Limitations-(lack of equipment, weather restraints, etc.). 88-Not Attempted due to Medical Conditions or Safety Concerns. Eating (QC): 6 Oral Hygiene (QC): 5 Lower Body Dressing (QC): 2 On/Off Footwear: 1 Toileting Hygiene (QC): 2 Toilet Transfer (QC): 2 Other Treatment ARM CHAIR PUSH [employer] x5 Education OT Patient Education: Correct positioning, Exercise program, Modified ADL techniques, Progress toward Goal/Update tx plan, Purpose of tx/functional activities, Reviewed precautions, Rehab process, Safety issues, Transfer techniques Teaching Recipient: Patient Teaching Methods: Demonstration, Discussion Response to Teaching: Reinforcement Needed OT [facility] Goals Forder Operator Goals Eating (QC): 6 Oral Hygiene (QC): 6 Toileting Hygiene (QC): 6 Shower/Bathe Self (QC): 6 Upper Body Dressing (QC): 6 Lower Body Dressing (QC): 6 On/Off Footwear (QC): 6 1=Demonstrate adherence to instructed precautions during ADL tasks. 2=Patient will verbalize/demonstrate understanding of assistive devices/modifications for ADL. 3=Patient will improve strength/tolerance for activity to enable patient to p erform ADL's. OT Education/Plan Problem List/Assessment Assessment: Decreased Activ Tolerance, Decreased UE Strength, Impaired Bed Mobility, Impaired Cognition, Impaired Coordination, Impaired Funct Balance, Im paired Self-Care Skills Discharge Recommendations Plan/Recommendations: Continue POC Therapy Discharge Recommendati: Post Acute OT Treatment Plan/Plan of Care Treatment,Training & Education: Yes Patient would benefit from OT for education, treatment and training to promote independence in ADL's, mobility, safety and/or upper extremity function for ADL's. Plan of Care: ADL Retraining, Cognitive Retraining, Concurrent Therapy, Functional Mobility, Group Exercise/Act as Ind, UE Funct Exercise/Act Treatment Duration: Aug 13, 2023 Frequency: 3 times per week (3-5 times per week) Estimated Hrs Per Day: .25 hour per day Agreement: Yes Rehab Potential: Good Time Start Time: 10:03 Stop Time: 10:17 DATE: Aug 04, 2023 Total Time Billed (hr/min): 14 Billed Treatment Time EX 14 min DAVIAN SUAREZ OT Aug 04, 2023 11:23
[2023-08-04 11:29] VITALS: BP 125/66
== END 2023-08-04 11:45 | DRG 543 ==
LOC: EDUNIT# 11:48 → ER 11:50 → 4TH 17:41
PROVIDERS: ADMIT Internal Medicine; ATTEND Internal Medicine
DX: M80.059A Age-related osteoporosis with current pathological fracture, unspecified femur, initial encounter for fracture (principal); I48.19 Other persistent atrial fibrillation; Z87.891 Personal history of nicotine dependence; I10 Essential (primary) hypertension; W18.30XA Fall on same level, unspecified, initial encounter; R54 Age-related physical debility; Z60.2 Problems related to living alone; Z66 Do not resuscitate
CPT/HCPCS: 36415; 72170; 73552; 73562; 73590; 80053; 83735; 83880; 84439; 84443; 85025; 96374; 96375; 96376